=== PATIENT | male | born 1955 ===

== ENCOUNTER 2024-05-05 19:14 | Observation (INO) ==
[2024-05-05 19:58] LABS: ABS Basophils 0.1 10^3/uL (0.0-0.1); ABS Lymphocytes 2.8 10^3/uL (1.0-4.8); ABS Monocytes 0.5 10^3/uL (0.0-1.1); ABS Neutrophils 4.5 10^3/uL (1.5-7.6); ABS Nucleated RBC 0.01 10^3/ul; Eosinophil % 0.5 %; Hematocrit 37.6 % (38-53); Hemoglobin 12.8 g/dL (13.2-16.3); Mean Corpuscular Hemoglobin 30.1 pg (27-33); Mean Corpuscular Volume 88.6 fL (80-97); Mean Platelet Volume 7.9 fL (7.5-11.2); Nucleated Red Blood Cells % 0.1 %/100WBC (0.0-0.8); Platelet Count 214 10^3/uL (150-450); Red Blood Count 4.24 10^6/uL (4.06-5.63); Red Cell Distribution Width 15.5 % (12-17); White Blood Count 7.9 10^3/uL (3.6-10.2)
[2024-05-05 20:05] LABS: INR 1.23 (0.85-1.14)
[2024-05-05 20:40] LABS: Albumin/Globulin Ratio 1.7 (1-3); Calcium 9.1 mg/dL (8.6-10.3); Creatinine, Serum 0.74 mg/dL (0.67-1.17); Globulin 2.3 g/dL (2-4); Magnesium 1.7 mg/dL (1.9-2.7); Potassium 3.6 mmol/L (3.5-5.0); Total Bilirubin 0.6 mg/dL (0.2-1.0); Total Protein 6.3 g/dL (6.4-8.9); eGFR CKD-EPI 98.7 (>60)
[2024-05-05 21:31] LABS: High Sensitivity Troponin 1 Hr 24 pg/mL (<20)
[2024-05-05] MEDS ORDERED: Albuterol HFA INHALER 8 gm MDI INH PRN (23:56)
[2024-05-06] MEDS ORDERED: Dextrose 50% Syringe 50 ml 25 GM/50 ML SYRINGE IV PUSH PRN (00:09)
[2024-05-06] MEDS ORDERED: Sulfur Hexaflouride MICROSPHR 25 MG VIAL IV PRN (00:18)
[2024-05-06] MEDS: Enoxaparin 40 MG/0.4 ML SYR SUBCUT SCH (00:22)
[2024-05-06] MEDS: Magnesium Sulfate 2 gm BAG 2 GM/50 ML BAG IVPB ONE (02:06)
[2024-05-06] MEDS: Potassium Chlor 20 meq TAB.ER PO ONE (02:07)
[2024-05-06] MEDS: Nitroglycerin 0.4 mg/hr PATCH (10 mg) TRANSDERM ONE (03:47)
[2024-05-06] MEDS: Magnesium Sulfate IV 1GM/100ML 1 GM/100 ML BAG IV ONE (03:53)
[2024-05-06] MEDS: Aspirin EC 81 mg TAB.EC (enteric coated) PO SCH (08:40)
[2024-05-06 10:02] VITALS: BP 121/82
[2024-05-06] MEDS: Insulin GLARGINE 100 un/ml 10 ml VIAL SUBCUT SCH (11:07)
[2024-05-06] MEDS ORDERED: Regadenoson 0.4 MG/5 ML SYRINGE ONE (12:21)
== END 2024-05-07 01:00 ==
LOC: ED 19:14 → EDHOLD 19:14 → SUATTDRO 23:53 → MEDTELE 05-06 03:16
PROVIDERS: ADMIT Hospitalist; ATTEND Student in an Organized Health Care Education/Training Program